=== PATIENT | male | born 1960 | race Two or more races ===

== ENCOUNTER 2024-03-25 09:14 | Outpatient (OUT) | payer OTHER, SELFPAY ==
[2024-03-25 11:22] LABS: Creatinine Urine Random 70.03 mg/dL (20.00-300.00); Microalbumin Urine Random <1.3 mg/dL (<=30.0)
== END 2024-03-25 09:15 | disposition home or self-care (01) ==
LOC: LAB 09:17
PROVIDERS: PCP Family Medicine; Visit Provider Family Medicine
DX: E11.9 Type 2 diabetes mellitus without complications (principal); I10 Essential (primary) hypertension
CPT/HCPCS: 82043; 82570